=== PATIENT | male | born 2000 | race Caucasian/White ===

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

== ENCOUNTER 2020-01-24 01:21 | Emergency (ER) | payer BC ==
[~2020-01-24] VITALS: Ht 177.8 cm; Wt 95.5 kg
[~2020-01-24 01:21] MED LIST: VYVA70CA3
[2020-01-24] MEDS ORDERED: TETANUS/DIPHTHERIA TOX ADSORB ADULT 0.5ML SYR/VIAL (90714) IM ONE (03:45)
[2020-01-24] MEDS ORDERED: ceFAZolin 1GM VIAL (J0690 PER 500MG) IM ONE (03:45)
--- NOTE | 2020-01-24 05:31 | REP ---
Clinical: Trauma. Foreign body. Technique: AP and lateral views of the left foot. Findings: No acute fracture or dislocation. No subcutaneous emphysema. No foreign body. Impression: No foreign body or evidence for injury. Electronically Signed by Esau Nguyen MD 01/24/2020 05:23 A
[2020-01-24] MEDS: LIDOCAINE 2% MDV 20ML VIAL SC ONE ×2 (06:16→06:20)
[2020-01-24] MEDS ORDERED: DERMABOND TOPICAL SKIN ADHESIVE TOP ONE (07:00)
[2020-01-24] MEDS ORDERED: KEFL500C17 PO (07:21)
[2020-01-24 07:36] VITALS: BP 133/67
== END 2020-01-24 07:59 | disposition home or self-care (01) ==
LOC: M ED 01:21
DX: S61.215A Laceration without foreign body of left ring finger without damage to nail, initial encounter (principal); W22.8XXA Striking against or struck by other objects, initial encounter; Y92.099 Unspecified place in other non-institutional residence as the place of occurrence of the external cause; Y93.89 Activity, other specified; Y99.9 Unspecified external cause status; F17.200 Nicotine dependence, unspecified, uncomplicated; Z79.899 Other long term (current) drug therapy
CPT/HCPCS: 12002; 73620; 90471; 90714; 96372; 99284; J0690

== ENCOUNTER → 2020-02-01 | Outpatient (CLI) | payer BC ==
[~2020-02-01] MED LIST changes: +KEFL500C17 PO
== END ==
LOC: M LABSMTC 12:02
PROVIDERS: ATTEND Orthopaedic Surgery
DX: Z11.59 Encounter for screening for other viral diseases (principal)

== ENCOUNTER → 2021-11-29 | Outpatient (REF) | payer BC | LOC: M LAB REF 19:14 | PROVIDERS: ATTEND Physician Assistant | DX: J02.9 Acute pharyngitis, unspecified (principal) ==

== ENCOUNTER → 2022-09-27 | Outpatient (CLI) | payer OTHER | LOC: M RAD 12:55 | PROVIDERS: ATTEND Nurse Practitioner | DX: R10.31 Right lower quadrant pain (principal) ==

== ENCOUNTER → 2024-06-25 | Outpatient (REF) | payer OTHER | LOC: M LAB REF 16:45 | PROVIDERS: ATTEND Physician Assistant Medical | DX: J02.9 Acute pharyngitis, unspecified (principal) ==